=== PATIENT | male | born 1960 | race Caucasian/White ===

== ENCOUNTER 2017-05-05 00:39 | Emergency (ER) | payer MEDICAID ==
[~2017-05-05] VITALS: Ht 180.3 cm; Wt 93.1 kg
[2017-05-05 00:44] VITALS: BP 135/87
== END 2017-05-05 01:38 | disposition home or self-care (01) ==
LOC: ER 00:40
DX: S61.215A Laceration without foreign body of left ring finger without damage to nail, initial encounter (principal); S61.217A Laceration without foreign body of left little finger without damage to nail, initial encounter; F17.200 Nicotine dependence, unspecified, uncomplicated; W26.9XXA Contact with unspecified sharp object(s), initial encounter; Y93.89 Activity, other specified; Y92.89 Other specified places as the place of occurrence of the external cause; Y99.8 Other external cause status
CPT/HCPCS: 99282; A6258